=== PATIENT | female | born 1970 ===

== ENCOUNTER → 2019-08-14 | Outpatient (CLI) | payer OTHER | LOC: M WUC 15:51 | PROVIDERS: ATTEND Physician Assistant | DX: Z02.1 Encounter for pre-employment examination (principal) ==

== ENCOUNTER → 2019-08-15 | Outpatient (CLI) | payer OTHER ==
[2019-08-16 10:19] LABS: RUBELLA IgG QUALITATIVE IMMUNE (IMMUNE)
[2019-08-18 14:07] LABS: HERPES ZOSTER, VARICELLA IgG 1848 index (Immune >165); HERPES ZOSTER, VARICELLA IgM <0.91 index (0.00-0.90); MUMPS VIRUS IgG ANTIBODY 12.4 AU/mL (Immune >10.9); RUBEOLA IgG ANTIBODY <13.5 AU/mL (Immune >16.4)
== END ==
LOC: M WUC 11:40
PROVIDERS: ATTEND Physician Assistant
DX: Z02.1 Encounter for pre-employment examination (principal)

== ENCOUNTER → 2020-08-29 | Outpatient (CLI) | payer OTHER, SELFPAY | LOC: M LABSMTC 12:02 | PROVIDERS: ATTEND Pediatrics | DX: Z20.822 Contact with and (suspected) exposure to COVID-19 (principal) ==

== ENCOUNTER → 2021-05-06 | Outpatient (REF) | payer BC ==
[2021-05-08 05:07] LABS: MUMPS VIRUS IgG ANTIBODY 10.2 AU/mL (Immune >10.9); RUBEOLA IgG ANTIBODY <13.5 AU/mL (Immune >16.4)
== END ==
LOC: M LAB REF 16:05
PROVIDERS: ATTEND Internal Medicine
DX: Z02.1 Encounter for pre-employment examination (principal)